=== PATIENT | male | born 1960 | race Two or more races ===

== ENCOUNTER 2021-06-25 08:25 | Emergency (ER) | payer MEDICAID ==
[~2021-06-25] VITALS: Ht 167.6 cm; Wt 69.6 kg
[~2021-06-25 08:25] MED LIST: CITA40TA11 PO; GLIM4TAB7 PO; MELA3TAB39 PO; METF-438 PO; METF500T PO; TRAZ-251 PO
[2021-06-25 08:58] LABS: BASOPHILS % (AUTO) 0.5 % (0-1); EOSINOPHILS % (AUTO) 0.1 % (0-6); HEMATOCRIT 46.8 % (42.0-52.0); HEMOGLOBIN 15.8 g/dl (14.0-17.9); LYMPHOCYTES # (AUTO) 0.9 X10'3 (1.1-4.8); LYMPHOCYTES % (AUTO) 22.1 % (21-51); MEAN CORPUSCULAR HGB CONC 33.8 g/dL (33.0-36.5); MEAN PLATELET VOLUME 8.2 FL (7.4-10.4); MONOCYTES # (AUTO) 0.4 X10'3 (0-0.9); MONOCYTES % (AUTO) 9.5 % (2-12); NEUTROPHILS # (AUTO) 2.9 X10'3 (1.8-7.7); NEUTROPHILS % (AUTO) 67.8 % (42-75); PLATELET COUNT 202 X10'3 (140-440); RED BLOOD COUNT 5.26 X10'6 (4.70-6.10); RED CELL DISTRIBUTION WIDTH 13.9 % (11.5-14.5); WHITE BLOOD COUNT 4.3 X10'3 (4.5-11.0)
[2021-06-25 09:12] LABS: ALANINE AMINOTRANSFERASE 31 U/L (12-78); ALBUMIN 3.9 G/DL (3.4-5.0); ALBUMIN/GLOBULIN RATIO 0.9 (1.1-1.5); ALKALINE PHOSPHATASE 84 IU/L (46-116); ANION GAP 11 (8-16); ASPARTATE AMINO TRANSFERASE 29 U/L (10-37); BILIRUBIN,TOTAL 0.5 MG/DL (0.1-1.0); BLOOD UREA NITROGEN 15 MG/DL (7-18); BUN/CREATININE RATIO 19.2 (5.4-32.0); CALCIUM 8.4 MG/DL (8.5-10.1); CHLORIDE 97 MMOL/L (99-107); CREATININE 0.78 MG/DL (0.60-1.10); GLUCOSE 114 MG/DL (70-104); SODIUM 134 MMOL/L (135-145); TOTAL CARBON DIOXIDE 26.2 MMOL/L (24-32); TOTAL PROTEIN 8.1 G/DL (6.4-8.2); eGFR > 90 ML/MIN
[2021-06-25 14:15] VITALS: BP 142/84
== END 2021-06-25 14:12 | disposition home or self-care (01) ==
LOC: ER 08:26
DX: R07.89 Other chest pain (principal); I25.10 Atherosclerotic heart disease of native coronary artery without angina pectoris; I10 Essential (primary) hypertension; E11.9 Type 2 diabetes mellitus without complications; F32.9 Major depressive disorder, single episode, unspecified; Z98.890 Other specified postprocedural states; Z72.89 Other problems related to lifestyle; Z56.0 Unemployment, unspecified; Z79.899 Other long term (current) drug therapy
CPT/HCPCS: 36415; 71045; 80053; 83880; 84484; 85025; 93005; 99285

== ENCOUNTER 2021-06-26 11:58 | Emergency (ER) | payer MEDICAID ==
[~2021-06-26] VITALS: Ht 167.6 cm; Wt 69.3 kg
[2021-06-26 12:45] VITALS: BP 110/70
[2021-06-26 13:27] LABS: BASOPHILS % (AUTO) 0.4 % (0-1); EOSINOPHILS % (AUTO) 0 % (0-6); HEMATOCRIT 47.3 % (42.0-52.0); HEMOGLOBIN 15.6 g/dl (14.0-17.9); LYMPHOCYTES # (AUTO) 0.8 X10'3 (1.1-4.8); LYMPHOCYTES % (AUTO) 21.7 % (21-51); MEAN CORPUSCULAR HEMOGLOBIN 29.4 PG (27.0-31.0); MEAN CORPUSCULAR HGB CONC 33.1 g/dL (33.0-36.5); MEAN CORPUSCULAR VOLUME 88.9 FL (78-98); MEAN PLATELET VOLUME 8.2 FL (7.4-10.4); MONOCYTES # (AUTO) 0.4 X10'3 (0-0.9); MONOCYTES % (AUTO) 10.4 % (2-12); NEUTROPHILS # (AUTO) 2.4 X10'3 (1.8-7.7); NEUTROPHILS % (AUTO) 67.5 % (42-75); PLATELET COUNT 175 X10'3 (140-440); RED BLOOD COUNT 5.32 X10'6 (4.70-6.10); WHITE BLOOD COUNT 3.6 X10'3 (4.5-11.0)
[2021-06-26 13:33] LABS: ALANINE AMINOTRANSFERASE 28 U/L (12-78); ALBUMIN 3.8 G/DL (3.4-5.0); ALBUMIN/GLOBULIN RATIO 0.8 (1.1-1.5); ALKALINE PHOSPHATASE 82 IU/L (46-116); ANION GAP 9 (8-16); ASPARTATE AMINO TRANSFERASE 29 U/L (10-37); BILIRUBIN,TOTAL 0.6 MG/DL (0.1-1.0); BLOOD UREA NITROGEN 15 MG/DL (7-18); BUN/CREATININE RATIO 17.9 (5.4-32.0); CALCIUM 7.8 MG/DL (8.5-10.1); CHLORIDE 100 MMOL/L (99-107); CREATININE 0.84 MG/DL (0.60-1.10); GLUCOSE 161 MG/DL (70-104); POTASSIUM 4.3 MMOL/L (3.5-5.1); SODIUM 138 MMOL/L (135-145); TOTAL CARBON DIOXIDE 29.3 MMOL/L (24-32); TOTAL PROTEIN 8.3 G/DL (6.4-8.2); eGFR > 90 ML/MIN
== END 2021-06-26 19:15 | disposition left against medical advice (07) ==
LOC: ER 11:59
DX: R10.12 Left upper quadrant pain (principal); Z53.21 Procedure and treatment not carried out due to patient leaving prior to being seen by health care provider
CPT/HCPCS: 36415; 71045; 80053; 82948; 83880; 84484; 85025; 93005

== ENCOUNTER 2023-07-25 09:16 | Inpatient (IN) | payer MEDICAID ==
[~2023-07-25] VITALS: Ht 162.6 cm; Wt 63.4 kg
[~2023-07-25 09:16] MED LIST changes: +CITA-119 PO; -CITA40TA11 PO; +CITA40TA32 PO
--- NOTE | 2023-07-25 09:18 | NUR ---
E F 63 years old [facility] Neuro Created By: [facility] Provider: Created at 07/25/2023 - 09:18 Initial Page Sent
--- NOTE | 2023-07-25 09:24 | NUR ---
Pt to CT at 924
[2023-07-25] MEDS ORDERED: LORazepam 2 mg/ml vial IV ONE ×2 (09:55→10:00)
[2023-07-25] MEDS ORDERED: iohexol 350MG/ML 100ml bottle IV ONE (10:09)
[2023-07-25] MEDS ORDERED: LORazepam 2 mg/ml vial IV PRN ×4 (10:20→11:05)
[2023-07-25 10:21] LABS: APTT 26 SECONDS (22-32); PROTHROMBIN TIME 10.4 SECONDS (9.0-12.0)
[2023-07-25 10:22] LABS: ALANINE AMINOTRANSFERASE 27 U/L (12-78); ALBUMIN 3.5 G/DL (3.4-5.0); ALBUMIN/GLOBULIN RATIO 0.9 (1.1-1.5); ALKALINE PHOSPHATASE 111 IU/L (46-116); ANION GAP 8 (8-16); ASPARTATE AMINO TRANSFERASE 25 U/L (10-37); BILIRUBIN,TOTAL 0.6 MG/DL (0.1-1.0); BLOOD UREA NITROGEN 11 MG/DL (7-18); BUN/CREATININE RATIO 12.9 (10.0-20.0); CHLORIDE 95 MMOL/L (99-107); CREATININE 0.85 MG/DL (0.60-1.10); GLUCOSE 230 MG/DL (70-104); POTASSIUM 4.6 MMOL/L (3.5-5.1); SODIUM 130 MMOL/L (135-145); TOTAL CARBON DIOXIDE 27.1 MMOL/L (24-32); TOTAL PROTEIN 7.2 G/DL (6.4-8.2); eCRCL 75 ML/MIN; eGFR > 90 ML/MIN
[2023-07-25 10:31] LABS: BASOPHILS % (AUTO) 0.2 % (0-1); EOSINOPHILS # (AUTO) 0.1 X10'3 (0-0.9); HEMATOCRIT 39.9 % (42.0-52.0); HEMOGLOBIN 13.6 g/dl (14.0-17.9); LYMPHOCYTES # (AUTO) 1.2 X10'3 (1.1-4.8); LYMPHOCYTES % (AUTO) 19.2 % (21-51); MEAN CORPUSCULAR HEMOGLOBIN 30.9 PG (27.0-31.0); MEAN CORPUSCULAR HGB CONC 34.2 g/dL (33.0-36.5); MEAN CORPUSCULAR VOLUME 90.4 FL (78-98); MEAN PLATELET VOLUME 7.6 FL (7.4-10.4); MONOCYTES # (AUTO) 0.5 X10'3 (0-0.9); MONOCYTES % (AUTO) 8.5 % (2-12); NEUTROPHILS # (AUTO) 4.4 X10'3 (1.8-7.7); NEUTROPHILS % (AUTO) 71.1 % (42-75); PLATELET COUNT 244 X10'3 (140-440); RED BLOOD COUNT 4.42 X10'6 (4.70-6.10); RED CELL DISTRIBUTION WIDTH 13.3 % (11.5-14.5); WHITE BLOOD COUNT 6.2 X10'3 (4.5-11.0)
[2023-07-25] MEDS ORDERED: thiamine 100mg/ml 2ml inj. IV ONE (10:34)
[2023-07-25] MEDS ORDERED: multivitamins, therapeutics tablet PO ONE (10:34)
[2023-07-25] MEDS ORDERED: MESSAGE TO PHARMACY PO ONE (11:05)
[2023-07-25] MEDS ORDERED: DEXTROSE 15 GM of carb/4 tabs (each vial/BOTTLE has 4 tablets) PO PRN ×2 (11:05)
[2023-07-25] MEDS ORDERED: ondansetron/PF 4mg/2ml inj IV PRN (11:05)
[2023-07-25] MEDS ORDERED: magnesium hydroxide 30ml (MOM) UD suspension PO PRN (11:05)
[2023-07-25] MEDS ORDERED: dextrose 50%-water 50ml dispensing syringe IV PRN ×3 (11:05)
[2023-07-25] MEDS ORDERED: glucagon, human recombinant 1mg kit SUBCUT PRN (11:05)
[2023-07-25] MEDS ORDERED: HYDROcodone/acetaminophen 5mg/325mg tablet PO PRN (11:05)
[2023-07-25] MEDS ORDERED: haloperidol lactate 5mg/ml inj IM PRN (11:05)
[2023-07-25] MEDS ORDERED: acetaminophen 325mg tablet PO PRN ×2 (11:05)
[2023-07-25] MEDS ORDERED: mag hydrox/Alum hydrox/simeth 30ml oral suspension PO PRN (11:05)
[2023-07-25] MEDS ORDERED: morphine 2 MG/ML inj. syringe IV PRN ×2 (11:05)
[2023-07-25] MEDS ORDERED: haloperidol 5mg tablet PO PRN (11:05)
[2023-07-25 11:50] LABS: PRO BRAIN NATRIURETIC PEPTIDE 319 PG/ML (0-125)
[2023-07-25 12:19] LABS: HEMOGLOBIN A1C 9.1 % (4.5-6.2)
--- NOTE | 2023-07-25 12:32 | NUR ---
Swallow assessment performed and documented on patient - pass without concerns. 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
[2023-07-25] MEDS: thiamine 100mg/ml 2ml inj. IV SCH ×2 (13:00→21:18)
[2023-07-25 13:30] LABS: BILIRUBIN,URINE NEGATIVE (Neg); CLARITY,URINE CLEAR (Clear); COLOR,URINE YELLOW (Yellow); GLUCOSE, URINE 100 mg/dl (Neg); KETONES,URINE NEGATIVE (Neg); LEUKOCYTE ESTERASE ,URINE NEGATIVE (Neg); NITRITES, URINE NEGATIVE (Neg); OCCULT BLOOD,URINE NEGATIVE (Neg); PROTEIN,URINE NEGATIVE (Neg); UROBILINOGEN,URINE 0.2 E.U/dL (0.2-1.0)
[2023-07-25 13:36] LABS: UA COLLECTION TYPE CLN CATCH MIDSTREAM
--- NOTE | 2023-07-25 16:35 | NUR ---
MD PIERCE PAGED REGARDING UPDATE ON PLAN OF CARE FOR PATIENT. STATING HE WAS UNABLE TO DISCUSS HPI WITH PT AND WILL EXAMEN HIM TOMORROW. PLAN OF CARE IS TO MONITOR PT FOR S/S WITHDRAWAL TONIGHT AND REEVALUATE TOMORROW.
[2023-07-25] MEDS: docusate sod 100mg capsule PO SCH (21:18)
[2023-07-25] MEDS: insulin glargine (Lantus) pen - multi-dose SQ SCH (21:29)
[2023-07-26] VITALS (7 sets, daily range): BP systolic 111–149; BP diastolic 63–88; PULSE 75–96; RESP 12–18; TEMP 97.2–98; O2SAT 96–97
[2023-07-26 03:23] LABS: BASOPHILS % (AUTO) 0.2 % (0-1); EOSINOPHILS # (AUTO) 0.1 X10'3 (0-0.9); EOSINOPHILS % (AUTO) 1.7 % (0-6); HEMATOCRIT 42.9 % (42.0-52.0); HEMOGLOBIN 14.8 g/dl (14.0-17.9); LYMPHOCYTES # (AUTO) 1.6 X10'3 (1.1-4.8); LYMPHOCYTES % (AUTO) 26.3 % (21-51); MEAN CORPUSCULAR HEMOGLOBIN 30.9 PG (27.0-31.0); MEAN CORPUSCULAR HGB CONC 34.6 g/dL (33.0-36.5); MEAN CORPUSCULAR VOLUME 89.5 FL (78-98); MEAN PLATELET VOLUME 8.1 FL (7.4-10.4); MONOCYTES # (AUTO) 0.4 X10'3 (0-0.9); MONOCYTES % (AUTO) 6.5 % (2-12); NEUTROPHILS # (AUTO) 3.9 X10'3 (1.8-7.7); NEUTROPHILS % (AUTO) 65.3 % (42-75); PLATELET COUNT 255 X10'3 (140-440); RED BLOOD COUNT 4.79 X10'6 (4.70-6.10); RED CELL DISTRIBUTION WIDTH 13.1 % (11.5-14.5); WHITE BLOOD COUNT 5.9 X10'3 (4.5-11.0)
[2023-07-26 03:31] LABS: ALANINE AMINOTRANSFERASE 25 U/L (12-78); ALBUMIN 3.3 G/DL (3.4-5.0); ALBUMIN/GLOBULIN RATIO 0.8 (1.1-1.5); ALKALINE PHOSPHATASE 117 IU/L (46-116); ANION GAP 8 (8-16); ASPARTATE AMINO TRANSFERASE 25 U/L (10-37); BILIRUBIN,TOTAL 0.6 MG/DL (0.1-1.0); BLOOD UREA NITROGEN 11 MG/DL (7-18); BUN/CREATININE RATIO 15.5 (10.0-20.0); CALCIUM 8.5 MG/DL (8.5-10.1); CHLORIDE 97 MMOL/L (99-107); CREATININE 0.71 MG/DL (0.60-1.10); GLUCOSE 217 MG/DL (70-104); LIPASE 21 U/L (16-77); MAGNESIUM 2.2 MG/DL (1.5-2.4); PHOSPHORUS 3.4 MG/DL (2.3-4.5); POTASSIUM 4.1 MMOL/L (3.5-5.1); SODIUM 132 MMOL/L (135-145); TOTAL CARBON DIOXIDE 27.5 MMOL/L (24-32); TOTAL PROTEIN 7.4 G/DL (6.4-8.2); eCRCL 90 ML/MIN; eGFR > 90 ML/MIN
[2023-07-26] MEDS: HYDROcodone/acetaminophen 10/325mg tab PO PRN ×2 (08:37→15:41)
[2023-07-26] MEDS: docusate sod 100mg capsule PO SCH ×2 (08:41→19:26)
[2023-07-26] MEDS: thiamine 100mg/ml 2ml inj. IV SCH ×3 (08:41→21:46)
[2023-07-26] MEDS: multivitamins, therapeutics tablet PO SCH (08:41)
--- NOTE | 2023-07-26 08:57 | NUR ---
PRIMARY RN ATTEMPTED TO CALL REPORT ON PT. WAS TOLD FLOOR WILL CALL BACK.
[2023-07-26] MEDS: insulin Lispro (HumaLOG) vial - multi-dose SQ SCH ×2 (09:07→19:23)
--- NOTE | 2023-07-26 09:18 | NUR ---
Patient in room ED 5. I have received report from Jeri in the ED and had the opportunity to ask questions.
--- NOTE | 2023-07-26 09:29 | NUR ---
Patient arrived to the floor.
[2023-07-26] MEDS: folic acid 1mg/0.2ml inj IV SCH (09:49)
[2023-07-26 13:16] LABS: CHOL/HDL RATIO 7.6 (0.00-4.99); CHOLESTEROL 228 MG/DL (0-200); HDL CHOLESTEROL 30 MG/DL (35-60); LDL CHOLESTEROL 138 MG/DL (50-100); TRIGLYCERIDES 278 MG/DL (20-135)
[2023-07-26] MEDS ORDERED: PRAV40TA3 PO (16:50)
[2023-07-26] MEDS ORDERED: LANTUS SQ (16:50)
[2023-07-26] MEDS ORDERED: ESCI-8 PO (16:50)
--- NOTE | 2023-07-26 18:03 | NUR ---
Patient in room ORTHO 4010. I have received report from jolie richard and had the opportunity to ask questions and assume patient care.
--- NOTE | 2023-07-26 18:13 | NUR ---
Page Sent PAGER ID: [phone] MESSAGE: [phone] lynn aguila, pts MRI has resulted and ready to view. please let me know if the pt needs to be started on stroke protocol. the protocol is not on here now just ETOH protocol. thanks sravan [phone]
--- NOTE | 2023-07-26 18:20 | NUR ---
per md pt MRI seems to be negative, no stroke protocol needed at this time.
--- NOTE | 2023-07-26 18:29 | NUR ---
Problems reprioritized. Patient report given, questions answered & plan of care reviewed with Shawnee.
[2023-07-26] MEDS: insulin glargine (Lantus) pen - multi-dose SQ SCH (21:54)
--- NOTE | 2023-07-27 03:00 | NUR ---
Patient in room ORTHO 4006. I have received report from Shawnee and had the opportunity to ask questions and assume patient care.
--- NOTE | 2023-07-27 03:24 | NUR ---
Problems reprioritized. Patient report given, questions answered & plan of care reviewed with jolie richard.
[2023-07-27 06:00] VITALS: BP 126/73; PULSE 89; RESP 18; TEMP 97.7; O2SAT 96
[2023-07-27 06:14] LABS: BASOPHILS % (AUTO) 0.4 % (0-1); EOSINOPHILS # (AUTO) 0.1 X10'3 (0-0.9); HEMATOCRIT 43.3 % (42.0-52.0); HEMOGLOBIN 14.7 g/dl (14.0-17.9); LYMPHOCYTES # (AUTO) 1.7 X10'3 (1.1-4.8); LYMPHOCYTES % (AUTO) 29.1 % (21-51); MEAN CORPUSCULAR HEMOGLOBIN 30.7 PG (27.0-31.0); MEAN CORPUSCULAR VOLUME 90.3 FL (78-98); MEAN PLATELET VOLUME 7.5 FL (7.4-10.4); MONOCYTES # (AUTO) 0.5 X10'3 (0-0.9); MONOCYTES % (AUTO) 8.1 % (2-12); NEUTROPHILS # (AUTO) 3.5 X10'3 (1.8-7.7); NEUTROPHILS % (AUTO) 60.4 % (42-75); PLATELET COUNT 283 X10'3 (140-440); RED CELL DISTRIBUTION WIDTH 13.2 % (11.5-14.5); WHITE BLOOD COUNT 5.8 X10'3 (4.5-11.0)
--- NOTE | 2023-07-27 06:23 | NUR ---
Problems reprioritized. Patient report given, questions answered & plan of care reviewed with Ronna.
[2023-07-27 06:36] LABS: ALANINE AMINOTRANSFERASE 22 U/L (12-78); ALBUMIN 3.4 G/DL (3.4-5.0); ALBUMIN/GLOBULIN RATIO 0.9 (1.1-1.5); ALKALINE PHOSPHATASE 115 IU/L (46-116); ANION GAP 6 (8-16); ASPARTATE AMINO TRANSFERASE 19 U/L (10-37); BILIRUBIN,TOTAL 0.4 MG/DL (0.1-1.0); BLOOD UREA NITROGEN 12 MG/DL (7-18); BUN/CREATININE RATIO 17.4 (10.0-20.0); CALCIUM 8.4 MG/DL (8.5-10.1); CHLORIDE 100 MMOL/L (99-107); CREATININE 0.69 MG/DL (0.60-1.10); GLUCOSE 140 MG/DL (70-104); LIPASE 22 U/L (16-77); MAGNESIUM 2.1 MG/DL (1.5-2.4); PHOSPHORUS 4.3 MG/DL (2.3-4.5); SODIUM 134 MMOL/L (135-145); TOTAL CARBON DIOXIDE 27.7 MMOL/L (24-32); TOTAL PROTEIN 7.3 G/DL (6.4-8.2); eCRCL 93 ML/MIN; eGFR > 90 ML/MIN
--- NOTE | 2023-07-27 06:36 | NUR ---
Patient in room ORTHO 4006. I have received report from PETER Ramos and had the opportunity to ask questions and assume patient care.
[2023-07-27] MEDS: multivitamins, therapeutics tablet PO SCH (07:24)
[2023-07-27] MEDS: docusate sod 100mg capsule PO SCH (07:24)
[2023-07-27] MEDS: HYDROcodone/acetaminophen 10/325mg tab PO PRN ×2 (07:24→12:38)
[2023-07-27] MEDS: thiamine 100mg/ml 2ml inj. IV SCH ×2 (07:25→12:22)
[2023-07-27] MEDS: folic acid 1mg/0.2ml inj IV SCH (07:34)
[2023-07-27] MEDS ORDERED: atorvastatin 10mg tablet PO SCH (08:00)
[2023-07-27] MEDS ORDERED: ESCITALOPRAM 10 mg tablet 10 MG TABLET PO SCH (08:00)
[2023-07-27] MEDS: insulin Lispro (HumaLOG) vial - multi-dose SQ SCH (09:48)
[2023-07-27] MEDS ORDERED: LORazepam 1 MG tablet PO PRN (11:05)
[2023-07-27] MEDS ORDERED: LORazepam 2 mg/ml vial IV PRN (11:05)
--- NOTE | 2023-07-27 12:20 | NUR ---
Patient given discharge packet and was able to ask any questions upon discharge. IV discontinued and cannula intact. Pt was brought down to the lobby in a wheelchair in no distress with all of his belongings. Patient left with his family in a private vehicle
[2023-07-27] MEDS ORDERED: thiamine tablet PO (12:23)
[2023-07-27] MEDS ORDERED: MULT-25 PO (12:23)
[2023-07-27] MEDS ORDERED: FOLI1TAB27 PO (12:23)
[2023-07-27 12:38] VITALS: RESP 15
--- NOTE | 2023-07-27 14:37 | NUR ---
Diabetes consult: Pt presents with an A1c of 9.1% this admit per EMR. Pt seen at bedside for written/verbal diabetes nutrition education in [place]. 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 RD contact also provided and encouraged pt to reach out for any nutrition questions or concerns. Addendum: 07/27/23 at [address] Amended: Links added.
[2023-07-28] MEDS ORDERED: ASPI-1265 PO (16:09)
[2023-07-28] MEDS ORDERED: CLOP-32 PO (16:09)
--- NOTE | 2023-07-28 16:17 | NUR ---
Patient called and education on MRI positive for stroke and plavix and aspirin prescriptions sent to his pharmacy by Dr Chamorro. Patient and son verbalized understanding and need to package pick up prescripitions as soon as possible.
[2023-07-29] MEDS ORDERED: thiamine 100mg tablet PO SCH (08:00)
[2023-07-29] MEDS ORDERED: LORazepam 1 MG tablet PO PRN (11:05)
[2023-07-29] MEDS ORDERED: LORazepam 2 mg/ml vial IV PRN (11:05)
[2023-07-30] MEDS ORDERED: folic acid 1mg tablet PO SCH (08:00)
== END 2023-07-27 14:40 | disposition home or self-care (01) | DRG 45 ==
LOC: ER 09:16 → ED HOLD 11:08 → EDBEDREQ 07-26 04:40 → ORTHO 4S 07-26 06:30
PROVIDERS: ADMIT Internal Medicine; ATTEND Internal Medicine
PROC: B3251ZZ Computerized Tomography (CT Scan) of Bilateral Common Carotid Arteries using Low Osmolar Contrast (ICD-10-PCS; principal; 2023-07-25)
PROC: B32G1ZZ Computerized Tomography (CT Scan) of Bilateral Vertebral Arteries using Low Osmolar Contrast (ICD-10-PCS; 2023-07-25)
PROC: B32R1ZZ Computerized Tomography (CT Scan) of Intracranial Arteries using Low Osmolar Contrast (ICD-10-PCS; 2023-07-25)
PROC: B3281ZZ Computerized Tomography (CT Scan) of Bilateral Internal Carotid Arteries using Low Osmolar Contrast (ICD-10-PCS; 2023-07-25)
PROC: 4A00X4Z Measurement of Central Nervous Electrical Activity, External Approach (ICD-10-PCS; 2023-07-25)
PROC: 4A00X4Z Measurement of Central Nervous Electrical Activity, External Approach (ICD-10-PCS; 2023-07-26)
DX: I63.9 Cerebral infarction, unspecified (principal); I66.9 Occlusion and stenosis of unspecified cerebral artery; R56.9 Unspecified convulsions; D64.9 Anemia, unspecified; E11.65 Type 2 diabetes mellitus with hyperglycemia; F32.A Depression, unspecified; F10.139 Alcohol abuse with withdrawal, unspecified; G47.00 Insomnia, unspecified; Y90.9 Presence of alcohol in blood, level not specified; I10 Essential (primary) hypertension; I25.10 Atherosclerotic heart disease of native coronary artery without angina pectoris; I25.2 Old myocardial infarction; Z79.899 Other long term (current) drug therapy; Z56.0 Unemployment, unspecified
CPT/HCPCS: 36415; 70450; 70496; 70498; 70551; 71045; 80053; 80061; 81003; 82948; 83690; 83735; 84100; 85025; 85610; 85730; 86885; 86900; 86901; 87081; 93306; 95816; 99285; G0378; J1815; J2060; J3411; J3490; Q9967

== ENCOUNTER 2024-10-28 14:49 | Emergency (ER) | payer MEDICAID ==
[~2024-10-28] VITALS: Ht 162.6 cm; Wt 62.4 kg
[~2024-10-28 14:49] MED LIST changes: -CITA-119 PO; -CITA40TA32 PO; +CLOP-32 PO; +ESCI-8 PO; +FOLI1TAB27 PO; -GLIM4TAB7 PO; +LANTUS SQ; -MELA3TAB39 PO; -METF500T PO; +MULT-25 PO; +PRAV40TA3 PO; -TRAZ-251 PO; +thiamine tablet PO
[2024-10-28 15:39] LABS: BASOPHILS % (AUTO) 0.6 % (0-1); EOSINOPHILS # (AUTO) 0.1 X10'3 (0-0.9); EOSINOPHILS % (AUTO) 2.5 % (0-6); HEMATOCRIT 44.2 % (42.0-52.0); LYMPHOCYTES # (AUTO) 1.9 X10'3 (1.1-4.8); LYMPHOCYTES % (AUTO) 38.1 % (21-51); MEAN CORPUSCULAR HEMOGLOBIN 30.7 PG (27.0-31.0); MEAN CORPUSCULAR VOLUME 90.5 FL (78-98); MEAN PLATELET VOLUME 7.8 FL (7.4-10.4); MONOCYTES # (AUTO) 0.4 X10'3 (0-0.9); MONOCYTES % (AUTO) 7.3 % (2-12); NEUTROPHILS # (AUTO) 2.6 X10'3 (1.8-7.7); NEUTROPHILS % (AUTO) 51.5 % (42-75); PLATELET COUNT 285 X10'3 (140-440); RED BLOOD COUNT 4.89 X10'6 (4.70-6.10); RED CELL DISTRIBUTION WIDTH 14.2 % (11.5-14.5); WHITE BLOOD COUNT 5.1 X10'3 (4.5-11.0)
[2024-10-28 15:46] LABS: ALANINE AMINOTRANSFERASE 26 U/L (12-78); ALBUMIN 3.7 G/DL (3.4-5.0); ALBUMIN/GLOBULIN RATIO 0.9 (1.1-1.5); ALKALINE PHOSPHATASE 110 IU/L (46-116); ANION GAP 5 (8-16); ASPARTATE AMINO TRANSFERASE 13 U/L (10-37); BILIRUBIN,TOTAL 0.4 MG/DL (0.1-1.0); BLOOD UREA NITROGEN 11 MG/DL (7-18); BUN/CREATININE RATIO 16.7 (10.0-20.0); CALCIUM 8.7 MG/DL (8.5-10.1); CHLORIDE 99 MMOL/L (99-107); CREATININE 0.66 MG/DL (0.60-1.10); GLUCOSE 308 MG/DL (70-104); POTASSIUM 4.2 MMOL/L (3.5-5.1); SODIUM 137 MMOL/L (135-145); TOTAL CARBON DIOXIDE 33.3 MMOL/L (24-32); TOTAL PROTEIN 7.7 G/DL (6.4-8.2); eCRCL 96 ML/MIN; eGFR > 90 ML/MIN
[2024-10-28 15:50] LABS: APTT 25 SECONDS (22-32); PROTHROMBIN TIME 10.3 SECONDS (9.0-12.0)
[2024-10-28 15:56] LABS: PRO BRAIN NATRIURETIC PEPTIDE 483 PG/ML (0-125)
[2024-10-28 16:33] LABS: THYROID STIMULATING HORMONE 1.28 ulU/ml (0.34-4.50)
[2024-10-28 18:27] LABS: BILIRUBIN,URINE NEGATIVE (Neg); CLARITY,URINE CLEAR (Clear); COLOR,URINE YELLOW (Yellow); GLUCOSE, URINE 500 mg/dl (Neg); KETONES,URINE NEGATIVE (Neg); LEUKOCYTE ESTERASE ,URINE NEGATIVE (Neg); NITRITES, URINE NEGATIVE (Neg); OCCULT BLOOD,URINE NEGATIVE (Neg); PROTEIN,URINE TRACE mg/dl (Neg)
[2024-10-28 18:35] LABS: BACTERIA,URINE NONE SEEN /HPF (Neg); RBC,URINE 0-2 /HPF (0-2); SQUAMOUS EPITHELIAL CELL,UR NONE SEEN /LPF (FEW); UA COLLECTION TYPE URINAL; WBC,URINE NONE SEEN /HPF (0-4)
[2024-10-28 20:27] VITALS: BP 146/79; PULSE 89; RESP 16; TEMP 98.1; O2SAT 99
== END 2024-10-28 20:37 | disposition home or self-care (01) ==
LOC: ER 14:50
DX: R07.89 Other chest pain (principal); I25.10 Atherosclerotic heart disease of native coronary artery without angina pectoris; I10 Essential (primary) hypertension; E11.65 Type 2 diabetes mellitus with hyperglycemia; I25.2 Old myocardial infarction; Z79.899 Other long term (current) drug therapy
CPT/HCPCS: 36415; 71045; 80053; 81001; 83880; 84443; 84484; 85025; 85610; 85730; 93005; 99285; J7030

== ENCOUNTER 2025-04-08 10:08 | Inpatient (IN) | payer MEDICAID ==
[~2025-04-08] VITALS: Ht 165.1 cm; Wt 57.0 kg
[~2025-04-08 10:08] MED LIST changes: +PRAV40TA17 PO; -PRAV40TA3 PO
--- NOTE | 2025-04-08 10:42 | ELECTROCARDIOGRAPH REPORT ---
[facility] Test Date: 2025-04-08 Test Time: 10:40:26 Pat Name: DARCI LAGUERRE Department: [facility] Patient ID: [id number] Room: [place] [address] Gender: M Distribution Engineer: : 1960 Requested By: CALLUM HERNANDEZ Order Number: [id number] Reading MD: Dr. Hema Dutta Measurements Intervals [place] Rate: 92 P: 77 NC: 141 QRS: 84 QRSD: 64 T: 60 QT: 365 QTc: 452 Interpretive Statements Sinus rhythm Right atrial enlargement Anterior infarct, old Electronically Signed On 04-08-2025 19:43:[address] Hema Dutta Please click the below link to view image of tracing.
[2025-04-08 11:12] LABS: MEAN PLATELET VOLUME 8.9 FL (7.4-10.4); RED CELL DISTRIBUTION WIDTH 13.9 % (11.5-14.5)
[2025-04-08 11:26] LABS: CREATININE 0.86 MG/DL (0.60-1.10); TOTAL CARBON DIOXIDE 29.5 MMOL/L (24-32); eCRCL 71 ML/MIN; eGFR 90 ML/MIN
[2025-04-08] MEDS: normal saline 1000ml 1,000 ML IV ONE (12:06)
--- NOTE | 2025-04-08 13:07 | Physician Documentation ---
History of Present Illness ~ Chief Complaint: Dizziness Stated Complaint: DIABETES Time Seen by MD: 12:17 Primary Medical Doctor: [facility] Source: patient (10) Mode of Arrival: POV HPI Patient comes in for evaluation of dizziness and weakness, nausea and polydipsia. This began a few days ago. Patient reports that he is a diabetic and is usually labile with his blood sugars, but they are usually no higher than the mid 200s. He was out of medications for about a month but has been restarted for the next week or two on his appropriate medications but nevertheless began to develop a heaviness in his legs, fatigue, inability to do his normal ADLs, headache, nausea, dizziness, and polyuria, polydipsia. He does have prior history of DKA. Patient denies any chest pain or shortness of breath at this time. Medication Reconciliation Allergies: Coded Allergies: No Known Allergies (Unverified , 07/25/23) Scheduled Clopidogrel Bisulfate (Plavix), 1 TAB PO DAILY Escitalopram Oxalate (Escitalopram Oxalate), 1 TAB PO DAILY, (Reported) Folic Acid* (Folic Acid*), 1 MG PO DAILY Metformin HCl (Metformin HCl), 1 TAB PO Q12H Multivitamin with Folic Acid (Thera Tablet), 1 EACH PO Q24H Pravastatin Sodium (Pravastatin Sodium), 1 TAB PO DAILY, (Reported) [thiamine tablet], 100 MG PO DAILY Miscellaneous Medications Insulin Glargine,Hum.rec.anlog* (Lantus*), 40 UNITS SQ, (Reported) Past Medical History Past Medical History: Coronary Artery Disease, Hypertension, Myocardial Infarction, Diabetes, Depression Past Surgical History: angioplasty Patient History: FH: diabetes mellitus FH: heart disease Smoking Status: Current every day smoker Alcohol Use: Occasionally Lives with: Spouse Occupation: unemployed Review of Systems All Other Systems at this time: Reviewed and Negative Physical Exam Vital Signs: Temperature: 97.1, Source: Oral, Heart Rate: 96, Respiratory Rate: 13, BP: 131/66, Pulse Oximetry: 98, Weight: 57.000 Physical Exam General: Pt is awake, alert, oriented x4 in no acute distress and well appearing. Head: Normocephalic and atraumatic. Eyes: Conjunctiva normal. ENT: Mucous membranes moist. Neck: Supple. Chest: Clear to auscultation bilaterally, without rales, rhonchi, or wheezes. There is no accessory muscle use or retractions. Cardiac: Regular rate and rhythm without murmurs, gallops or rubs. Palpation of the chest wall is normal. Abd: Soft, nondistended, nontender, with normoactive bowel sounds. No guarding or rebound. Extremities: Within normal limits without cyanosis, clubbing, or edema. Skin: [place], warm and dry with no significant rash appreciated. Neuro: Cranial nerves II-XII grossly intact. The gait is normal. Progress Results/Orders Results/Orders Orders - CALLUM HERNANDEZ MD Electrocardiogram (04/08/25 10:34) Observation Status Start (04/08/25 13:01) Page Hospitalist (04/08/25 13:01) Completed Orders - CALLUM HERNANDEZ MD Cbc/Diff (04/08/25 10:34) BMP (04/08/25 10:34) Lipase (04/08/25 10:34) CMP (04/08/25 10:34) Electrocardiogram (04/08/25 10:34) Normal Saline 1000ml (0.9% Sodium Chlori (04/08/25 12:05) Hs Troponin I W Calculations (04/08/25 13:01) Hs Troponin I W Calculations (04/08/25 15:01) Hs Troponin I W Calculations (04/08/25 16:01) Insulin Regular, Human (Humulin R 10 Uni (04/08/25 13:05) Acetone, Serum (04/08/25 13:04) Ua W/Microscopic, Cult If Ind (04/08/25 13:38) Hgb A1c (04/08/25 10:48) Vital Signs 04/08/25 04/08/25 10:29 11:49 Temp 97.1 Pulse 96 Resp 18 13 B/P (MAP) 131/66 Pulse Ox 98 Laboratory Tests Test 04/08/25 10:33 04/08/25 10:48 04/08/25 13:17 04/08/25 13:38 Glucometer 535 *H White Blood Count 5.7 Red Blood Count 5.45 Hemoglobin 16.9 Hematocrit 49.9 Mean Corpuscular Volume 91.5 Mean Corpuscular Hemoglobin 31.1 H Mean Corpuscular Hemoglobin Concent 34.0 Red Cell Distribution Width 13.9 Platelet Count 273 Mean Platelet Volume 8.9 Neutrophils (%) (Auto) 73.9 Lymphocytes (%) (Auto) 19.6 L Monocytes (%) (Auto) 5.9 Eosinophils (%) (Auto) 0.3 Basophils (%) (Auto) 0.3 Neutrophils # (Auto) 4.2 Lymphocytes # (Auto) 1.1 Monocytes # (Auto) 0.3 Eosinophils # (Auto) 0.0 Basophils # (Auto) 0.0 CBC Comment Sodium Level 131 L Potassium Level 5.2 H Chloride Level 93 L Carbon Dioxide Level 29.5 Anion Gap 9 Blood Urea Nitrogen 13 Creatinine 0.86 Estimated GFR/1.73 m2 90 BUN/Creatinine Ratio 15.1 Glucose Level 468 *H Hemoglobin A1c 11.7 H Calcium Level 9.4 Total Bilirubin 0.6 Aspartate Amino Transf (AST/SGOT) 34 Alanine Aminotransferase (ALT/SGPT) 56 Alkaline Phosphatase 124 H Troponin I High Sensitivity 7 7 Total Protein 8.6 H Albumin 4.2 Globulin 4.4 H Albumin/Globulin Ratio 1.0 L Lipase 41 Chemistry Comments Acetone Level Negative Urine Specimen Description Voided Urine Color Yellow Urine Clarity Clear Urine pH 7.0 Urine Specific [place] <=1.005 Urine Protein Negative Urine Glucose (UA) >=1000 H Urine Ketones Negative Urine Occult Blood Negative Urine Nitrite Negative Urine Bilirubin Negative Urine Urobilinogen 1.0 Urine Leukocyte Esterase Negative Urine RBC None seen Urine WBC 0-4 Urine Squamous Epithelial Cells Few Urine Bacteria None seen Urine Mucus None seen Urine Culture Indicated Not ind Volume Urine Centrifuged 10 ml Urine Comment Consults/PCP Consults/PCP : Time Call Requested: 13:06 Consult Reason/Comments: Hospitalist Additional Comment 1313 Case d/w Dr. Shirley, who will evaluate for admisssion Medical Decision Making Additional Information Patient presenting significantly symptomatic and with an elevated blood glucose in the 500s despite being on his normal medications. History of diabetic ketoacidosis, ketone levels currently pending. Patient has no complaints of chest pain but does have a history of coronary artery disease; EKG nondiagnostic for acute cardiac ischemia and troponins pending. He also has found to have elevated potassium, and potassium lowering measures are implemented. Patient to be admitted to the hospitalist service for stabilization. Departure Time of Disposition: 13:06 Admitted to Inpatient Unit: yes, to hospitalist Impression: Primary Impression: Dizziness Additional Impressions: Hyperglycemia Hyperkalemia Condition: Fair Referrals: NO PRIMARY CARE PROVIDER (PCP) Education Educated: Patient Educated regarding: diagnosis, treatment Signature Scribe Signature: Attestation: CALLUM HERNANDEZ MD Apr 08, 2025 13:07
--- NOTE | 2025-04-08 13:39 | HISTORY AND PHYSICAL ---
History & Physical Providers to CC ~ History of Present Illness Reason for Admit\Complaint: Weaknes and dizzyness History of Present Illness 64 year old male with history of DM, CAD, HTN, Hyperlipidemia , Depression presented to the ER for evaluation of weakness, and nausea. He has been out of his medications for about a month. Patient reports that he moved to [facility] and there is no transportation available for him to be able to go to his doctor. He does have prior history of DKA. He denies having any recent fever chills abdominal pain dysuria frequency urgency hematuria melena or bright red blood per rectum. Denies having any focal neurological symptoms. On ER evaluation, patient is noted to have mild hypokalemia with a sodium of 131 and hyperglycemia with a blood sugar of wants 468. He has been admitted for further treatment Allergies: Coded Allergies: No Known Allergies (Unverified , 07/25/23) Home Medications Home Medications Active Plavix (Clopidogrel Bisulfate) 75 Mg Tablet 1 Tab PO DAILY 30 Days Thera Tablet (Multivitamin with Folic Acid) 400 Mcg Tablet 1 Each PO Q24H 30 Days [thiamine tablet] 100 MG Tablet 100 Mg PO DAILY 30 Days Folic Acid* (Folic Acid) Y Tab 1 Mg PO DAILY 30 Days Metformin HCl 1,000 Mg Tablet 1 Tab PO Q12H 30 Days Reported Escitalopram Oxalate 10 Mg Tablet 1 Tab PO DAILY Pravastatin Sodium 40 Mg Tablet 1 Tab PO DAILY Lantus* (Insulin Glargine) 100 Unit/1 Ml Vial 40 Units SQ Past Medical History Past Medical History DM, CAD, Depression Past Surgical History Surgical History Comment Angioplasty Family History Family History: Family history was reviewed; no changes noted. Past Social History Social History Comment Smokes up to six cigarettes everyday,drinks beer occasionally, does not do any drugs, unemployed , lives with Health Maintenance Health Maintenance Current on his immunizations ROS ROS All other systems are reviewed and are negative except as mentioned in HPI. Exam Vitals: Vital Signs Date Time Temp Pulse Resp B/P (MAP) Pulse Ox O2 Delivery O2 Flow Rate FiO2 04/08/25 11:49 13 04/08/25 10:29 97.1 96 98 General: Awake alert cooperative in no acute distress HEENT: Normocephalic atraumatic pupils round reactive to light and accommodation, extraocular movements intact, sclera anicteric, conjunctiva pinkish, moist oral mucosa, no rash or ulcers. Neck: Supple, no JVD, trachea midline, no lymphadenopathy. Chest: Clear to auscultation, no wheezes crackles or rhonchi. Cardiovascular: Regular rate rhythm, no murmur gallop or rub. Abdomen: Soft nontender, no organomegaly. Extremities: No cyanosis clubbing or edema. Central Nervous System: Nonfocal. Moves all four extremities Musculoskeletal: No joint swelling or deformities noted. Skin: No rash or ulcers Diagnostic Data Last Recorded Lab Results: 04/08/25 1048 04/08/25 1048 Additional Plan 64 years old male presented to the ER for evaluation of weakness and nausea. 1. Hyperglycemia: We will start him on carb controlled diet and hyper/hypoglycemia protocol . Hold metformin 2. CAD: Continue Plavix. Patient is asymptomatic 3. Hyperlipidemia: Continue pravastatin 4. History of depression: Continue escitalopram 5. Hyponatremia: Likely pseudohyponatremia due to hyperglycemia vs dehydration due to glycosuria . Monitor 6. Mild hyperkalemia: Recheck after IV fluids. Lokelma if remains elevated. Code status: Patient will be kept as a full code Date of Service: Apr 08, 2025 Billing Provider: NICHOLAS CULLEN MD Common Visit Codes: [id number] INP/OBS CARE (HIGH) NICHOLAS CULLEN MD Apr 08, 2025 13:39
[2025-04-08] MEDS: insulin regular, human 10 units/0.1 ml syringe SQ ONE (13:40)
[2025-04-08] MEDS ORDERED: ondansetron/PF 4mg/2ml inj IV PRN (13:50)
[2025-04-08] MEDS ORDERED: HYDROcodone/acetaminophen 5mg/325mg tablet PO PRN (13:50)
[2025-04-08] MEDS ORDERED: HYDROcodone/acetaminophen 10/325mg tab PO PRN (13:50)
[2025-04-08] MEDS ORDERED: magnesium sulf-water 2g/50mL 50 ML IV PRN (13:50)
[2025-04-08] MEDS ORDERED: magnesium Cl slow-release 64mg tablet PO PRN (13:50)
[2025-04-08] MEDS ORDERED: potassium Cl 40MEQ/1/2NS 520ml 520 ML IV PRN (13:50)
[2025-04-08] MEDS ORDERED: potassium Cl 20 mEq SR tablet PO PRN ×2 (13:50)
[2025-04-08] MEDS ORDERED: magnesium sulf-water 4G/100mL 100 ML IV PRN (13:50)
[2025-04-08 13:54] LABS: ACETONE NEGATIVE (NEGATIVE)
[2025-04-08 13:58] LABS: LEUKOCYTE ESTERASE ,URINE NEGATIVE (Neg); NITRITES, URINE NEGATIVE (Neg); OCCULT BLOOD,URINE NEGATIVE (Neg); UA COLLECTION TYPE VOIDED
[2025-04-08 14:04] LABS: MUCUS STRANDS NONE SEEN /LPF (Neg); SQUAMOUS EPITHELIAL CELL,UR FEW /LPF (FEW)
[2025-04-08] MEDS: normal saline 1000ml 1,000 ML IV SCH (14:16)
[2025-04-08 18:00] VITALS: BP 134/65; PULSE 69; RESP 18; TEMP 97.8; O2SAT 97
[2025-04-08] MEDS: K and/or MAG REPLACEMENT MC SCH (19:25)
[2025-04-08] MEDS ORDERED: dextrose 50%-water 50ml dispensing syringe IV PRN ×2 (21:15)
[2025-04-08] MEDS ORDERED: glucagon, human recombinant 1mg kit SUBCUT PRN (21:15)
[2025-04-08] MEDS ORDERED: DEXTROSE 15 GM of carb/4 tabs (each vial/BOTTLE has 4 tablets) PO PRN ×2 (21:15)
[2025-04-08] MEDS: INSULIN LISPRO 100 UNIT/ML INSULN.PEN MULTI-DOSE SQ SCH (21:58)
[2025-04-08] MEDS: insulin glargine (Lantus) pen - multi-dose SQ SCH (21:59)
[2025-04-08 22:00] VITALS: BP 131/72; PULSE 74; RESP 18; TEMP 97.6; O2SAT 98
[2025-04-09 05:00] VITALS: BP 136/71; PULSE 71; RESP 14; TEMP 98.1; O2SAT 100
[2025-04-09 05:42] LABS: MEAN PLATELET VOLUME 8.8 FL (7.4-10.4); RED CELL DISTRIBUTION WIDTH 13.8 % (11.5-14.5)
[2025-04-09 05:55] LABS: CREATININE 0.62 MG/DL (0.60-1.10); TOTAL CARBON DIOXIDE 30.3 MMOL/L (24-32); eCRCL 98 ML/MIN; eGFR > 90 ML/MIN
[2025-04-09] MEDS ORDERED: INSULIN LISPRO 100 UNIT/ML INSULN.PEN MULTI-DOSE SQ SCH (07:00)
[2025-04-09] MEDS: INSULIN LISPRO 100 UNIT/ML INSULN.PEN MULTI-DOSE SQ SCH (09:30)
[2025-04-09 10:00] VITALS: BP 133/71; PULSE 72; RESP 18; TEMP 97.8; O2SAT 98
[2025-04-09 10:17] VITALS: RESP 14; O2SAT 100
[2025-04-09] MEDS ORDERED: METF-438 PO (15:55)
[2025-04-09] MEDS ORDERED: MULT-25 PO (15:55)
[2025-04-09] MEDS ORDERED: CLOP-32 PO (15:55)
[2025-04-09] MEDS ORDERED: LANTUS SQ (15:55)
[2025-04-09] MEDS ORDERED: PRAV40TA17 PO (15:55)
[2025-04-09] MEDS ORDERED: ESCI-8 PO (15:55)
[2025-04-09] MEDS ORDERED: thiamine tablet PO (15:55)
[2025-04-09] MEDS ORDERED: FOLI1TAB27 PO (15:55)
--- NOTE | 2025-04-09 16:07 | DISCHARGE SUMMARY ---
Discharge Summary Providers to CC ~ Discharge Summary Admission Diagnosis: Hyperglycemia, hyponatremia Hyperkalemia Hospital Course DATE OF ADMISSION: 04/08/2025 DATE OF DISCHARGE: Discharge Diagnosis\Comment: Generalized weakness Uncontrolled diabetes mellitus Hyponatremia Mild hyperkalemia Operations\Procedures: None. Consultants: None Complications: None Condition on DC: Stable Changed Medications: Insulin Glargine,Hum.rec.anlog* (Lantus*) 100 Unit/1 Ml Vial 40 UNITS SQ DAILY for 30 Days, #1 VIAL 1 Refill (Changed from: Refills: ) [thiamine tablet] () 100 100 MG PO DAILY for 30 Days, #30 (Changed from: [thiamine tablet] 100 MG TABLET 100 Mg PO DAILY 30 Days #30) Continued Medications: Clopidogrel Bisulfate (Plavix) 75 Mg Tablet 1 TAB PO DAILY for 30 Days, #30 TAB 0 Refills (This prescription has been renewed) Escitalopram Oxalate (Escitalopram Oxalate) 10 Mg Tablet 1 TAB PO DAILY for 30 Days, #30 TAB (This prescription has been renewed) Folic Acid* (Folic Acid*) Y Tab 1 MG PO DAILY for 30 Days, #30 TAB (This prescription has been renewed) Metformin HCl (Metformin HCl) 1,000 Mg Tablet 1 TAB PO Q12H for 30 Days, #60 TAB (This prescription has been renewed) Multivitamin with Folic Acid (Thera Tablet) 400 Mcg Tablet 1 EACH PO Q24H for 30 Days, #30 TAB (This prescription has been renewed) Pravastatin Sodium (Pravastatin Sodium) 40 Mg Tablet 1 TAB PO DAILY for 30 Days, #30 TAB (This prescription has been renewed) Discharge Summary: Reason for admission: 64 years old male presented to the ER for evaluation of weakness and nausea. Please refer to admission H&P for more details Hospital course: Patient was admitted on the monitored floor under hospital course as follows. 1. Hyperglycemia in the setting of IDDM: Patient stated that he has been off his medications for about a month because he is not able to get it at where he lives. Further reports that he has a issue with his transportation. Patient was placed on carb controlled diet. Hyper/hypoglycemia protocol and insulin. All his medications are now being prescribed and patient wants to a different pharmacy here in [place]. 2. History of CAD: Asymptomatic during this admission. Patient continued on Plavix. 3. Hyperlipidemia: Continued pravastatin 4. History of depression: Continued escitalopram 5. Hyponatremia: Likely pseudohyponatremia due to hyperglycemia vs dehydration due to glycosuria . Resolved with IV hydration 6. Mild hyperkalemia: Resolved with IV hydration and improved control of his blood sugar. Discharge exam: Examined the patient on the day of discharge. Awake alert cooperative in no acute distress HEENT normocephalic atraumatic extraocular movements are intact Neck supple, JVD Chest: Clear to auscultation, no wheezes crackles rhonchi Heart: Regular rate rhythm, no murmur or gallop rub Abdomen is soft nontender no organomegaly Extremities no cyanosis clubbing or edema Neuro exam nonfocal Disposition: Home *Problems/Diagnosis: (1) Hyperglycemia Status: Acute Total Time Spent on D/C: > 30 Minutes Date of Service: Apr 09, 2025 Billing Provider: NICHOLAS CULLEN MD Common Visit Codes: [id number] DISCH DAY >30min NICHOLAS CULLEN MD Apr 09, 2025 16:03
[2025-04-09] MEDS ORDERED: insulin glargine (Lantus) pen - multi-dose SQ SCH (21:00)
[2025-04-11] MEDS ORDERED: LANTUS SQ (10:08)
== END 2025-04-09 16:20 | disposition home or self-care (01) | DRG 426 ==
LOC: ER 10:08 → ED HOLD 13:50 → EDBEDREQ 16:53 → SUR 3N 17:18
PROVIDERS: ADMIT Internal Medicine; ATTEND Internal Medicine
DX: E87.1 Hypo-osmolality and hyponatremia (principal); E11.65 Type 2 diabetes mellitus with hyperglycemia; E87.5 Hyperkalemia; I10 Essential (primary) hypertension; E78.5 Hyperlipidemia, unspecified; I25.10 Atherosclerotic heart disease of native coronary artery without angina pectoris; F32.A Depression, unspecified; I25.2 Old myocardial infarction; Z87.891 Personal history of nicotine dependence; Z91.148 Patient's other noncompliance with medication regimen for other reason; Z79.84 Long term (current) use of oral hypoglycemic drugs; Z79.899 Other long term (current) drug therapy
CPT/HCPCS: 36415; 80048; 80053; 81001; 82009; 82948; 83036; 83690; 83735; 84132; 84484; 85025; 87081; 93005; 96360; 99285; G0378; J1815; J7030